=== PATIENT | male | born 1990 | race Hispanic/Latino ===

== ENCOUNTER 2020-11-15 15:13 | Emergency (ER) | payer OTHER ==
[2020-11-15] MEDS ORDERED: Lidocaine 1% (PF) 30 ML VIAL ONE (17:04)
[2020-11-15] MEDS ORDERED: Boostrix 0.5 ML (Tdap) VIAL ONE (17:40)
== END 2020-11-15 17:55 | disposition home or self-care (01) ==
LOC: ERS 15:13
DX: S61.213A Laceration without foreign body of left middle finger without damage to nail, initial encounter (principal); W01.0XXA Fall on same level from slipping, tripping and stumbling without subsequent striking against object, initial encounter
CPT/HCPCS: 12002; 90471; 90715; J2001